=== PATIENT | female | born 1995 | race Caucasian/White ===

== ENCOUNTER 2022-03-31 13:08 | Emergency (ER) | payer OTHER, SELFPAY ==
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
[2022-03-31 13:22] VITALS: BP 131/76; PULSE 79; RESP 16; TEMP 36.4; O2SAT 98
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
== END 2022-03-31 14:35 | disposition home or self-care (01) ==
PROVIDERS: Emergency Provider Nurse Practitioner Family
DX: S50.812A Abrasion of left forearm, initial encounter (principal); V43.52XA Car driver injured in collision with other type car in traffic accident, initial encounter; S13.4XXA Sprain of ligaments of cervical spine, initial encounter
CPT/HCPCS: 72050; 72072; 99213; G0463